=== PATIENT | male | born 1965 | race Caucasian/White ===

== ENCOUNTER 2018-10-03 08:45 | Emergency (ER) | payer OTHER | END 2018-10-03 09:50 | disposition home or self-care (01) | LOC: M ED 08:45 | DX: S90.32XA Contusion of left foot, initial encounter (principal); W11.XXXA Fall on and from ladder, initial encounter; Y92.89 Other specified places as the place of occurrence of the external cause; E78.5 Hyperlipidemia, unspecified; K21.9 Gastro-esophageal reflux disease without esophagitis; F17.200 Nicotine dependence, unspecified, uncomplicated; Z79.899 Other long term (current) drug therapy | CPT/HCPCS: 73630 ==

== ENCOUNTER → 2019-06-04 | Outpatient (CLI) | payer OTHER ==
[~2019-06-04] MED LIST: ALEV220C2 PO; PANT40TA3 PO; SIMV40TA20 PO
--- NOTE | 2019-06-07 18:08 | SLEEPCENT ---
DATE OF PROCEDURE: 06/04/2019 ORDERED BY: RADHA Hobbs Nocturnal polysomnography was performed for evaluation of sleep physiology in this patient with excessive somnolence and nonrestorative sleep who has comorbidities of hypertension and acid reflux disease. 8 hours and 8 minutes of data were reviewed. There were 432 minutes of sleep identified. Sleep latency was normal at 15.5 minutes. Rapid eye movement (REM) latency was normal at 82.5 minutes. Sleep architecture was fairly well preserved. There was some fragmentation. Four REM cycles were noted. Overall sleep efficiency 89.5%. The electrocardiogram shows a sinus rhythm with an average heart rate of 80 beats per minute. EEG showed reasonably normal waveforms for awake and sleep stages. There were 115 respiratory events identified of 10 seconds in duration or greater for an apnea-hypopnea index of 16. The events were primarily obstructive, not exclusive to sleep stage nor body posture. Arousals from respiratory events occurred 10.7 times per hour and remaining measures of sleep physiology were fairly normal. IMPRESSION: Obstructive sleep apnea syndrome (G47.33). Apnea-hypopnea index 16. RECOMMENDATIONS: The patient should be encouraged to return to the sleep disorder center for pressure therapy. In the interim, alcohol and sedative avoidance should be practiced and caution exercised during the operation of motor vehicles.
== END ==
LOC: M SLEEP 19:20
PROVIDERS: ATTEND Nurse Practitioner Family
DX: G47.33 Obstructive sleep apnea (adult) (pediatric) (principal)

== ENCOUNTER → 2019-07-04 | Outpatient (CLI) | payer OTHER ==
[~2019-07-04] MED LIST changes: +SIMV40TA2 PO; -SIMV40TA20 PO
--- NOTE | 2019-07-10 12:43 | SLEEPCENT ---
DATE OF STUDY: 07/04/2019 ORDERED BY: RADHA Hobbs Nocturnal polysomnography was performed for the titration of pressure therapy in this patient with obstructive sleep apnea syndrome. Apnea-hypopnea index of 16. For testing, a [employer]Med Quattro full face mask of large size was used, 4 cm of water pressure were applied to the circuit and the lights were extinguished. 8 hours and 17 minutes of data were reviewed. There were 431 minutes of sleep identified. Sleep latency was short at 7.5 minutes. REM latency was normal at 101 minutes. Sleep architecture was good with five REM cycles. Overall sleep efficiency 88.3%. The patient's electrocardiogram showed a sinus rhythm with an average heart rate of 80 beats per minute. EEG showed some coarsening in non-REM stages. Otherwise, normal waveforms for awake and sleep. Respiratory events were best palliated with CPAP at a pressure of +8. Some limb activity was noted in the EMG leads. Limb movement arousal index on this occasion was 1.3. IMPRESSION: Obstructive sleep apnea syndrome (G47.33). RECOMMENDATION: Nightly use of pressure therapy, 8 cm of water. cc: Alexander Marcum MD
== END ==
LOC: M SLEEP 19:34
PROVIDERS: ATTEND Nurse Practitioner Family
DX: G47.33 Obstructive sleep apnea (adult) (pediatric) (principal)